=== PATIENT | female | born 1990 | race Caucasian/White ===

== ENCOUNTER 2019-06-24 07:55 | Day surgery (SDC) | payer BC ==
[~2019-06-24 07:55] MED LIST: ACETAMINOPHEN 325 MG TABLET PO PRN; CEFAZOLIN SODIUM 2 GM in DEXTROSE 5%-WATER 100 ML IV PRN; IBUPROFEN 800 MG in NORMAL SALINE 250 ML IV PRN; LACTATED RINGERS 1000 ML IV PRN; LIDOCAINE 0.5% INJ-PF (5 MG/ML) 50 ML SDV SUBCUT PRN; PREGABALIN 50 MG CAPSULE PO PRN
[2019-06-24] MEDS ORDERED: ACETAMINOPHEN 325 MG TABLET ONE (08:24)
[2019-06-24] MEDS ORDERED: PREGABALIN 50 MG CAPSULE ONE (08:24)
[2019-06-24] MEDS ORDERED: SCOPOLAMINE HYDROBROMIDE 1.5 MG PATCH.TD72 ONE (09:43)
[2019-06-24] MEDS ORDERED: FAMOTIDINE INJ/PF 20 MG/2 ML SDV IV ONE ×2 (09:43→10:30)
[2019-06-24] MEDS ORDERED: MIDAZOLAM 2 MG/2 ML INJ ONE ×2 (09:43→12:10)
[2019-06-24] MEDS ORDERED: BUPIVACAINE HCL 0.25 % INJ/PF (2.5 MG/1 ML) 30 ML VIAL ONE ×2 (10:13→12:10)
[2019-06-24] MEDS ORDERED: SCOPOLAMINE HYDROBROMIDE 1.5 MG PATCH.TD72 TD ONE (10:30)
[2019-06-24] MEDS ORDERED: MIDAZOLAM 2 MG/2 ML INJ IV ONE (10:30)
[2019-06-24] MEDS ORDERED: PROPOFOL INJ 200 MG/20 ML VIAL IV ONE ×2 (12:10→14:41)
[2019-06-24] MEDS ORDERED: HYDROMORPHONE HCL INJ/PF 2 MG/ML AMPULE ONE ×2 (12:10→15:05)
[2019-06-24] MEDS ORDERED: FENTANYL CITRATE INJ/PF 250 MCG/5 ML AMPULE ONE (12:10)
[2019-06-24] MEDS ORDERED: FENTANYL CITRATE INJ/PF 100 MCG/2 ML AMPUL IV PRN ×3 (13:08)
[2019-06-24] MEDS ORDERED: MEPERIDINE HCL/PF INJ 25 MG/1 ML DISP.SYRIN IV PRN (13:08)
[2019-06-24] MEDS ORDERED: DIPHENHYDRAMINE HCL 50 MG/ML VIAL IV PRN (13:08)
[2019-06-24] MEDS ORDERED: SUCCINYLCHOLINE CHLORIDE INJ 200 MG/10 ML VIAL ONE (15:00)
[2019-06-24] MEDS ORDERED: NEOSTIGMINE METHYLSULFATE 10 MG/10 ML VIAL ONE (15:00)
[2019-06-24] MEDS ORDERED: GLYCOPYRROLATE 1 MG/5 ML VIAL ONE (15:00)
[2019-06-24] MEDS ORDERED: DEXAMETHASONE SOD PHOSPHATE INJ 4 MG/1 ML VIAL ONE (15:00)
[2019-06-24] MEDS ORDERED: LIDOCAINE 2% INJ-PF (20 MG/ML) 2 ML AMPUL ONE (15:00)
[2019-06-24] MEDS ORDERED: ONDANSETRON HCL INJ/PF 4 MG/2 ML SDV ONE (15:00)
[2019-06-24] MEDS ORDERED: ROCURONIUM BROMIDE INJ 50 MG/5 ML VIAL IV ONE (15:00)
[2019-06-24] MEDS ORDERED: HYDROMORPHONE HCL INJ/PF 2 MG/ML AMPULE IV PRN (15:45)
[2019-06-24] MEDS ORDERED: HYDROCODONE/ACETAMINOPHEN 10-325 MG TABLET ONE (16:18)
[2019-06-24 17:13] VITALS: BP 145/78
--- NOTE | 2019-06-28 09:16 | Operative Report ---
Nonrecallable Operative Report DATE OF SURGERY: 06/24/19 PREOPERATIVE DIAGNOSIS: symptomatic umbilical hernia POSTOPERATIVE DIAGNOSIS: Same as above OPERATION: Robot-assisted laparoscopic umbilical hernia repair with mesh SURGEON: SHAHEEN LOVE 1ST [facility] SET UP PERSON: MEREDITH CASTELLON ANESTHESIA: GA TISSUE REMOVED OR ALTERED: None COMPLICATIONS: None apparent ESTIMATED BLOOD LOSS: Minimal PROCEDURE: Drains/implants: Ventralight ST hernia mesh, 10 x 15 cm. Procedure in detail: After informed consent was obtained, the patient was brought to the operating room and laid in the supine position. The area of the abdomen was prepped and draped in a normal sterile fashion. An incision was created in the left upper quadrant using a 15 blade scalpel. The 5 mm camera and 5 mm trocar were inserted into the abdomen using the Optiview technique. Once the trocar was inserted, gas insufflation was attached, and pneumoperitoneum was achieved. A 12 mm left lateral abdominal wall trocar was placed, as well as a left lower quadrant 8 mm robotic trocar. This was done under direct laparoscopic vis ualization. The left upper quadrant 5 mm trocar was removed, and replaced with an 8 mm robotic trocar in similar fashion. Next, the robot was brought over the patient. It was docked appropriately. I then assumed my position at the surgeon's console. Attention was turned to visualization of the umbilical hernia defect. It was approximately 3 cm in total diameter. The defect was sutured closed using #1 V Lock Suture in simple running fashion. Next, a 10 x [address] hernia mesh was chosen to adequately cover the defect. The mesh was inserted, and apposed to the anterior abdominal wall using the EPS. The mesh was then sutured to the anterior abdominal wall using 2-0 V Lock Suture in circumferential, running fashion. Once this was completed, another V lock suture was used to affix the center of the mesh to the midline. The robot then was undocked, and I scrubbed back into the case. The 8 mm trocar sites were closed using 0 Vicryl suture in simple interrupted fashion with the aid of the Eamon-Bob device. The 12 mm trocar site was closed using 0 Vicryl suture in [id number] fashion, with the aid of the Eamon-Bob device. The overlying skin was closed using 4-0 Vicryl Rapide suture in subcuticular fashion. Dressings were placed, and the procedure was concluded. All sponge, instrument, and needle counts were correct x2. Condition: Stable. Meredith Castellon PA-C was scrubbed and present the entirety the procedure. She assisted with all portions of the procedure including placement of the trochars, docking of the robot, exchanging the robotic instruments, insertion of the mesh, closure of the fascia, and closure of the skin.
--- NOTE | 2019-06-28 09:16 | Discharge Summary ---
Discharge Summary (SDC) - Discharge Final Diagnosis: Symptomatic umbilical hernia Date of Surgery: 06/24/19 Discharge Date: 06/24/19 Condition: Stable Forms: ASU Anesthesia D/C Instruction, Return to Work, Discharge POC-Surgical Service Treatment or Instructions: DIET TOLERATED NO LIFTING MORE THAN 10 LBS FOR 6 WEEKS LE[address] STERI STRIPS IN PLACE, DO NOT REMOVE NO TUB BATHS, SWIMMING OR HOT TUBS MAY SHOWER IN 48HRS TAKE STOOL SOFTNER IF PRONE TO CONSTIPATION OR WHILE TAKING [place] CALL MD FOR UNUSUAL BLEEDING OR SIGNS OF INFECTION: FEVER OVER 101, FOUL SMELLING DRAINAGE, REDNESS, SWELLING Referrals: FAY PATTERSON, DENTAL OFFICE ASSISTANT-C [Primary Care Provider] - SHAHEEN LOVE MD [ACTIVE STAFF] - 07/06/19 9:30 am Discharge Diet: As Tolerated Respiratory Treatments at Home: Deep Breathing/Coughing, Incentive Spirometer Discharge Activity: No Lifting Over 10 Pounds, No Lifting/Push/Pulling, No tub bath Home Care Assistance: None Needed Report the Following to Your Physician Immediately: Shortness of Breath, Nausea, Vomiting, Increase in Pain, Fever over 101 Degrees, Unusual Bleeding, Redness, Warmth, Drainage-Foul Smelling
== END 2019-06-24 17:29 | disposition home or self-care (01) ==
LOC: OROUT 07:55
PROVIDERS: ATTEND Surgery
DX: K42.9 Umbilical hernia without obstruction or gangrene (principal); E03.9 Hypothyroidism, unspecified; E66.01 Morbid (severe) obesity due to excess calories
CPT/HCPCS: 49652; S2900; 36415; 752; 81025; 86850; 86900; 86901; C1781; J0330; J0690; J1100; J1170; J1741; J2250; J2405; J2704; J2710; J3010; J3490; J7050; J7060; S0028